=== PATIENT | female | born 1995 | race Two or more races ===

== ENCOUNTER 2018-09-04 20:07 | Inpatient (IN) | payer MEDICAID ==
[~2018-09-04] VITALS: Ht 160 cm; Wt 90.0 kg
[2018-09-04] MEDS ORDERED: OXYTOCIN 30U/ 0.9% NaCL 500ML 500 ML IV ONE (21:22)
[2018-09-04] MEDS ORDERED: OXYTOCIN 30U/ 0.9% NaCL 500ML 500 ML IV PRN (21:22)
[2018-09-04] MEDS ORDERED: D5%-LACTATED RINGERS 1,000 ML IV SCH (21:22)
[2018-09-04] MEDS ORDERED: CALCIUM CARBONATE 500 MG TAB.CHEW PO PRN (21:30)
[2018-09-04] MEDS ORDERED: TERBUTALINE 1 MG/ML, 1ML IVPush PRN (21:30)
[2018-09-04] MEDS ORDERED: ONDANSETRON 2MG/ML, 2ML IVPush PRN (21:30)
[2018-09-04] MEDS ORDERED: FENTANYL PF 100 MCG/2ML IV PRN (21:30)
[2018-09-04] MEDS: LACTATED RINGERS 1,000 ML IV SCH (21:36)
[2018-09-04] MEDS ORDERED: MISOPROSTOL 200 MCG TABLET ONE (21:40)
[2018-09-04] MEDS ORDERED: LIDOCAINE/PF 1%, 30ML ONE (21:40)
[2018-09-04] MEDS ORDERED: NEWBORN KIT ONE (21:40)
[2018-09-04] MEDS ORDERED: OXYTOCIN 30U/ 0.9% NaCL 500ML 0 ML ONE (21:41)
[2018-09-04 21:48] LABS: BASOPHILS # (AUTO) 0.04 x10^3/uL (0-0.1); BASOPHILS % (AUTO) 0 % (0-1); EOSINOPHILS # (AUTO) 0.05 x10^3/uL (0-0.4); EOSINOPHILS % (AUTO) 0 % (1-7); LYMPHOCYTES # (AUTO) 2.58 x10^3/uL (1-3.4); LYMPHOCYTES % (AUTO) 20 % (22-44); MD NO; MEAN CORPUSCULAR HEMOGLOBIN 23.8 pg (27.0-34.8); MEAN CORPUSCULAR HGB CONC 32.4 g/dL (32.4-35.8); MEAN CORPUSCULAR VOLUME 73.4 fL (80-100); MEAN PLATELET VOLUME 8.8 fL (7.4-10.4); MONOCYTES # (AUTO) 0.73 x10^3/uL (0.2-0.8); MONOCYTES % (AUTO) 6 % (2-9); NEUTROPHILS % (AUTO) 74 % (42-75); PLATELET COUNT 237 x10^3/uL (130-400); RED BLOOD COUNT 4.69 x10^6/uL (3.82-5.3); RED CELL DISTRIBUTION WIDTH 19.3 % (9.6-15.2)
[2018-09-05] MEDS ORDERED: FENTANYL PF 100 MCG/2ML ONE ×2 (03:42→05:02)
[2018-09-05] MEDS: FENTANYL PF 100 MCG/2ML IVPush PRN ×2 (03:44→05:04)
[2018-09-05] MEDS ORDERED: BUPIVACAINE 0.25% ONE ×2 (06:35→07:10)
[2018-09-05] MEDS ORDERED: FENTANYL/BUPIV./NS/PF 250 ML EPIDCONT ONE (06:35)
[2018-09-05] MEDS: LACTATED RINGERS 1,000 ML IV SCH ×4 (07:07→23:34)
[2018-09-05] MEDS ORDERED: FENTANYL/BUPIV./NS/PF 250 ML EPIDCONT SCH (07:34)
[2018-09-05] MEDS ORDERED: LACTATED RINGERS 1,000 ML IVBOLUS PRN (08:00)
[2018-09-05] MEDS ORDERED: EPHEDRINE 50 MG/ML, 1ML IVPush PRN (08:00)
[2018-09-05 08:30] VITALS: BP 104/55
[2018-09-05] MEDS ORDERED: ONDANSETRON 2MG/ML, 2ML ONE (13:42)
[2018-09-05] MEDS: OXYTOCIN 30U/ 0.9% NaCL 500ML 500 ML IV SCH (15:08)
[2018-09-05] MEDS ORDERED: ACETAMINOPHEN 325 MG TABLET ONE (15:14)
[2018-09-05] MEDS ORDERED: ACETAMINOPHEN 325 MG TABLET PO PRN ×2 (15:30)
[2018-09-05] MEDS ORDERED: OXYcodone/APAP 5/325MG TABLET PO PRN (15:30)
[2018-09-05] MEDS ORDERED: METHYLERGONOVINE 0.2 MG/ML IM PRN (15:30)
[2018-09-05] MEDS ORDERED: MISOPROSTOL 200 MCG TABLET PR PRN (15:30)
[2018-09-05] MEDS ORDERED: ONDANSETRON 2MG/ML, 2ML IV PRN (15:30)
[2018-09-05 17:40] VITALS: BP 99/69
[2018-09-05 18:00] VITALS: BP 101/65
[2018-09-05] MEDS: IBUPROFEN 600 MG TABLET PO PRN (21:22)
[2018-09-05] MEDS: OXYcodone/APAP 5/325MG TABLET PO PRN (21:23)
[2018-09-05 22:58] VITALS: BP 100/59
[2018-09-06 00:38] VITALS: BP 98/62
[2018-09-06] MEDS: OXYTOCIN 30U/ 0.9% NaCL 500ML 500 ML IV SCH (01:08)
[2018-09-06 04:31] VITALS: BP 102/65
[2018-09-06] MEDS: IBUPROFEN 600 MG TABLET PO PRN ×2 (04:31→18:46)
[2018-09-06] MEDS: OXYcodone/APAP 5/325MG TABLET PO PRN ×2 (05:02→18:46)
[2018-09-06 05:10] LABS: BASOPHILS # (AUTO) 0.03 x10^3/uL (0-0.1); BASOPHILS % (AUTO) 0 % (0-1); EOSINOPHILS # (AUTO) 0.05 x10^3/uL (0-0.4); EOSINOPHILS % (AUTO) 0 % (1-7); LYMPHOCYTES % (AUTO) 19 % (22-44); MD NO; MEAN CORPUSCULAR HEMOGLOBIN 23.9 pg (27.0-34.8); MEAN CORPUSCULAR HGB CONC 32.4 g/dL (32.4-35.8); MEAN CORPUSCULAR VOLUME 73.8 fL (80-100); MEAN PLATELET VOLUME 9.1 fL (7.4-10.4); MONOCYTES # (AUTO) 0.92 x10^3/uL (0.2-0.8); MONOCYTES % (AUTO) 6 % (2-9); NEUTROPHILS # (AUTO) 10.91 x10^3/uL (1.8-6.8); NEUTROPHILS % (AUTO) 74 % (42-75); PLATELET COUNT 221 x10^3/uL (130-400); RED BLOOD COUNT 3.58 x10^6/uL (3.82-5.3); RED CELL DISTRIBUTION WIDTH 18.8 % (9.6-15.2)
[2018-09-06 07:30] VITALS: BP 103/63
[2018-09-06 08:10] VITALS: BP 105/70
[2018-09-06] MEDS: PRENATAL VIT/IRON/FA 1 EACH TABLET PO SCH ×2 (09:00→18:46)
[2018-09-06 12:30] VITALS: BP 96/57
[2018-09-06] MEDS ORDERED: DIPH,PERTUSS(ACELL),TET VAC/PF NC IM-VACC ONE ×2 (17:33→18:00)
[2018-09-06] MEDS: DOCUSATE 100 MG CAPSULE PO PRN (18:46)
[2018-09-06 19:30] VITALS: BP 105/70
[2018-09-07] MEDS: IBUPROFEN 600 MG TABLET PO PRN (04:54)
[2018-09-07] MEDS: PRENATAL VIT/IRON/FA 1 EACH TABLET PO SCH (08:00)
[2018-09-07] MEDS: DOCUSATE 100 MG CAPSULE PO PRN (08:00)
[2018-09-07] MEDS: OXYcodone/APAP 5/325MG TABLET PO PRN (08:02)
[2018-09-07 08:30] VITALS: BP 102/67
[2018-09-07] MEDS ORDERED: IBUP-1222 PO (09:31)
== END 2018-09-07 12:45 | disposition home or self-care (01) | DRG 807 ==
LOC: LDOP 20:07 → LDIP 21:23 → 2NW 09-05 17:06
PROVIDERS: ADMIT Obstetrics & Gynecology; ATTEND Obstetrics & Gynecology
PROC: 10E0XZZ Delivery of Products of Conception, External Approach (ICD-10-PCS; principal; 2018-09-05)
PROC: 3E0R3BZ Introduction of Anesthetic Agent into Spinal Canal, Percutaneous Approach (ICD-10-PCS; 2018-09-05)
PROC: 00HU33Z Insertion of Infusion Device into Spinal Canal, Percutaneous Approach (ICD-10-PCS; 2018-09-05)
PROC: 0HQ9XZZ Repair Perineum Skin, External Approach (ICD-10-PCS; 2018-09-05)
DX: O42.911 Preterm premature rupture of membranes, unspecified as to length of time between rupture and onset of labor, first trimester (principal); Z37.0 Single live birth; Z3A.38 38 weeks gestation of pregnancy; O70.0 First degree perineal laceration during delivery
CPT/HCPCS: 36415; J7121; 85025; 86850; 86900; 89060; 90715; G0378; J2405; J3010; J3490; J2590; J7120; Q0114